=== PATIENT | male | born 2005 | race Hispanic/Latino ===

== ENCOUNTER 2025-06-19 16:01 | Emergency (ER) | payer OTHER ==
[~2025-06-19] VITALS: Ht 185.4 cm; Wt 79.6 kg
[2025-06-19] MEDS: NS (Normal Saline) 0.9% 1,000 ML IV ONE (18:30)
[2025-06-19 19:23] LABS: BASO # 0.0 10^3/uL (0.0-0.2); BASO % 0.2 % (0.0-1.0); EOS # 0.0 10^3/uL (0.0-0.5); EOS % 0.0 % (0.0-3.0); LYMPH # 0.7 10^3/uL (1.5-5.0); LYMPH % 6.3 % (24.0-44.0); MONO # 0.4 10^3/uL (0.0-0.8); MONO % 4.0 % (2.0-8.0); NEUTROPHILS # 9.9 10^3/uL (1.5-8.5); NEUTROPHILS % 89.1 % (36.0-66.0); PLATELET COUNT, AUTOMATED 150 10^3/uL (150-450)
[2025-06-19 19:50] LABS: AMPHETAMINES LEVEL URINE NEGATIVE (NEGATIVE)
[2025-06-19 19:51] LABS: BARBITURATES URINE NEGATIVE (NEGATIVE); BENZODIAZEPINES URINE NEGATIVE (NEGATIVE); COCAINE METABOLITE URINE NEGATIVE (NEGATIVE); METHADONE URINE NEGATIVE (NEGATIVE)
[2025-06-19 19:52] LABS: CANNABINOIDS URINE NEGATIVE (NEGATIVE); OPIATES URINE NEGATIVE (NEGATIVE); PHENCYCLIDINE URINE NEGATIVE (NEGATIVE)
[2025-06-19 19:54] LABS: ALT/SGPT 29 U/L (7.0-40); AST/SGOT 25 U/L (<34); CALCIUM LEVEL 9.5 MG/DL (8.5-10.1); CARBON DIOXIDE LEVEL 25 MMOL/L (20-31); CHLORIDE LEVEL 102 MMOL/L (98-107); CREATININE FOR GFR 0.91 MG/DL (0.70-1.30); GLOMERULAR FILTRATION RATE > 90.0 (>60); POTASSIUM SERUM 4.1 MMOL/L (3.5-5.1); SODIUM LEVEL 142 MMOL/L (136-145)
[2025-06-19 21:00] VITALS: BP 118/62
[2025-06-19 21:16] VITALS: TEMP 98.1; O2SAT 99
[2025-06-19] MEDS: KETOROLAC 30 MG/ML 1 ML VIAL IV ONE (21:20)
== END 2025-06-19 21:36 | disposition home or self-care (01) ==
LOC: EDBD 16:01 → M ED 16:01
DX: T88.7XXA Unspecified adverse effect of drug or medicament, initial encounter (principal); Z88.0 Allergy status to penicillin
CPT/HCPCS: 71045; 73610; 80048; 80076; 80307; 85025; 93005; 93041; 96361; 96374; 99285; J1885